=== PATIENT | female | born 1950 | race African-American/Black ===

== ENCOUNTER 2019-10-20 15:07 | Outpatient (CLI) | payer MEDICARE, OTHER ==
[2019-10-21 17:10] LABS: SARS-CoV-2 MS2 Positive; SARS-CoV-2 N Gene Negative; SARS-CoV-2 S Gene Negative; SARS-CoV-2 orf1ab Negative
== END 2019-10-20 15:08 | disposition home or self-care (01) ==
LOC: LABBT 15:07
PROVIDERS: ATTEND Surgery
DX: Z01.812 Encounter for preprocedural laboratory examination (principal); Z11.59 Encounter for screening for other viral diseases; M48.061 Spinal stenosis, lumbar region without neurogenic claudication; M54.16 Radiculopathy, lumbar region
CPT/HCPCS: 87635; U0003

== ENCOUNTER 2019-10-24 07:42 | Day surgery (SDC) | payer MEDICARE ==
[2019-10-20 16:31] VITALS: BMI 43.8
[2019-10-24 08:37] LABS: #Basophils 0.1 thou/uL (0.0-0.2); #Eosinphils 0.1 thou/uL (0.0-0.7); #Lymphocytes 1.8 thou/uL (1.20-3.40); #Monocytes 0.3 thou/uL (0.11-0.59); #Neutrophils 2.2 thou/uL (1.40-6.50); %Basophils 1.6 % (0.0-1.0); %Eosinophils 2.5 % (0.0-10.0); %Lymphocytes 39.7 % (21.0-51.0); %Monocytes 6.2 % (0.0-10.0); %Neutrophils 50.1 % (42.0-75.0); Hemoglobin 10.3 g/dL (12.0-16.0); Mean Corpuscular HGB CONC 31.6 g/dL (32.0-36.0); Mean Corpuscular Hemoglobin 30.3 pg (27.0-31.0); Mean Corpuscular Volume 95.9 fL (78.0-98.0); Platelet Count 152 thou/uL (130-400); RBC Distribution Width 12.8 % (11.5-14.5); White Blood Cell (WBC) Count 4.5 thou/uL (4.8-10.8)
[2019-10-24 08:41] LABS: PTT 31.9 SEC (22.9-36.1); Prothrombin Time 12.7 sec (12.0-14.7)
[2019-10-24 08:52] LABS: Anion Gap 12 mmol/L (10-20); BUN (Urea Nitrogen) 17 mg/dL (9.8-20.1); Calc. Creatinine Clearance 82 mL/min (70-130); Calcium 9.2 mg/dL (7.8-10.44); Carbon Dioxide 28 mmol/L (23-31); Chloride 104 mmol/L (98-107); Estimated GFR-MDRD 49; Glucose 111 mg/dL (80-115); Potassium 4.2 mmol/L (3.5-5.1); Sodium 140 mmol/L (136-145)
[2019-10-24] MEDS ORDERED: Thrombin 5000 UNITS/5 ML VIAL ONE (09:56)
[2019-10-24] MEDS ORDERED: Fentanyl 100 MCG/2 ML VIAL ONE ×3 (10:14→13:36)
[2019-10-24] MEDS ORDERED: PROPOFOL 200 MG/20 ML VIAL ONE (11:31)
[2019-10-24] MEDS ORDERED: PHENYLEPHRINE-NS 100 MCG/ML 10 ML SYRINGE ONE (11:31)
[2019-10-24] MEDS ORDERED: Ondansetron PF 4 MG/2 ML Vial ONE (11:31)
[2019-10-24] MEDS ORDERED: Glycopyrrolate 0.2 MG/ML 5 ML SYRINGE ONE (11:31)
[2019-10-24] MEDS ORDERED: Rocuronium Bromide 10 MG/ML (10ML VIAL) ONE (11:31)
[2019-10-24] MEDS ORDERED: Lidocaine 1% PF 5 ML VIAL ONE (11:31)
[2019-10-24] MEDS ORDERED: Metoclopramide HCl 10 MG/2 ML VIAL ONE (11:31)
[2019-10-24] MEDS ORDERED: HYDROmorphone 2 MG/ML VIAL SLOW IVP PRN (12:26)
[2019-10-24] MEDS ORDERED: Promethazine HCl 25 MG/ML VIAL SLOW IVP PRN (12:26)
[2019-10-24] MEDS ORDERED: Ondansetron HCl/PF 4 MG/2 ML Vial IVP PRN (12:26)
[2019-10-24] MEDS ORDERED: Promethazine HCl 25 MG/ML VIAL IM PRN (12:26)
[2019-10-24] MEDS ORDERED: Morphine Sulfate 2 MG/ML SYRINGE SLOW IVP PRN (12:26)
[2019-10-24] MEDS ORDERED: PACU-Morphine 4MG/ML VIAL SLOW IVP PRN (12:26)
[2019-10-24] MEDS ORDERED: Ondansetron PF 4 MG/2 ML Vial IVP PRN (12:57)
[2019-10-24] MEDS ORDERED: Acetaminophen 325 MG TAB PO PRN (12:57)
[2019-10-24] MEDS ORDERED: Mag-Al 1200 mg/1200 mg/30 ML UDCUP PO PRN (12:57)
[2019-10-24] MEDS ORDERED: Morphine 2 MG/ML SYRINGE SLOW IVP PRN (12:57)
[2019-10-24] MEDS ORDERED: traMADol HCl 50 MG TAB PO PRN (12:57)
[2019-10-24] MEDS ORDERED: Fleet Enema 133 ML BOT PR PRN (12:57)
[2019-10-24] MEDS ORDERED: Milk Of Magnesia 30 ML UDCUP PO PRN (12:57)
[2019-10-24] MEDS ORDERED: Bisacodyl 10 MG SUPP PR PRN (12:57)
[2019-10-24] MEDS: Sodium Chloride 0.9% 1,000 ML IV SCH (16:27)
[2019-10-24] MEDS: HYDROcodone/Acetaminophen 7.5/325 mg Tablet PO PRN ×2 (18:10→23:01)
[2019-10-24] MEDS: metFORMIN 500 MG TAB PO SCH (18:10)
[2019-10-24] MEDS: CEFAZOLIN 2 GM in Premix Bag 1 BAG IVPB SCH (18:10)
--- NOTE | 2019-10-24 20:20 | EKG ---
Test Reason : PREOP Blood Pressure : / mmHG Vent. Rate : 075 BPM Atrial Rate : 075 BPM P-R Int : 170 ms QRS Dur : 096 ms QT Int : 412 ms P-R-T Axes : 057 -10 014 degrees QTc Int : 460 ms Normal sinus rhythm Nonspecific T wave abnormality Abnormal ECG No previous ECGs available Confirmed by SCOTT SHELBY, DR. Queen ([id number]) on 10/24/2019 8:20:05 PM Referred By: ACE Confirmed By:DR. Bernice CHAVEZ MD
[2019-10-24] MEDS: tiZANidine HCl 4 MG TAB PO PRN (20:46)
[2019-10-24] MEDS: Gabapentin 300 MG CAP PO SCH (20:46)
[2019-10-24] MEDS: Lisinopril 20 MG TAB PO SCH (20:47)
[2019-10-24] MEDS: Acetaminophen/Codeine 30-300mg Tablet PO PRN (20:47)
[2019-10-24] MEDS ORDERED: Montelukast Sodium 10 mg Tablet PO SCH (21:00)
[2019-10-24] MEDS ORDERED: Atorvastatin Calcium 10 MG TAB PO SCH (21:00)
[2019-10-25] MEDS: Sodium Chloride 0.9% 1,000 ML IV SCH ×2 (02:27→17:30)
[2019-10-25] MEDS: tiZANidine HCl 4 MG TAB PO PRN (03:05)
[2019-10-25] MEDS: HYDROcodone/Acetaminophen 7.5/325 mg Tablet PO PRN ×4 (03:05→18:16)
[2019-10-25] MEDS: CEFAZOLIN 2 GM in Premix Bag 1 BAG IVPB SCH (03:05)
--- NOTE | 2019-10-25 05:56 | OP ---
DATE OF PROCEDURE: 10/24/2019 UNDERWRITING SERVICE REPRESENTATIVE: Monica Easley PA-C LOCATION: OR 12. WOUND CLASSIFICATION: Type 1 wound. PREPROCEDURE DIAGNOSIS: Low back and leg pain with lumbar stenosis, lumbar disk extrusion. POSTPROCEDURE DIAGNOSIS: Low back and leg pain with lumbar stenosis, lumbar disk extrusion. PROCEDURES PERFORMED: 1. L4 to S1 laminectomy, partial facetectomy, foraminotomy. 2. Left L5-S1 diskectomy. 3. Use of operating microscope for microdissection. DESCRIPTION OF PROCEDURE: After informed consent was obtained from the patient, the patient was brought to the OR. Proper patient, pause, and identification were carried out. She was placed under excellent general endotracheal anesthesia and positioned prone on the OR table. All appropriate points were padded. We identified the L4 to S1 dorsal spines and a linear nathan was made. This region was sterilely cleansed, prepared and draped. Proper patient, pause, and identification was then carried out. The wound was then opened with a combination of sharp, monopolar, and blunt dissection, exposed the L4, L5, S1 dorsal spines and lamina. We were satisfied with our exposure. Localization film confirmed area of interest, we then performed L4-L5, L5-S1 laminectomies, partial facetectomies, foraminotomies and we had excellent decompression of the common neural tube and nerve roots. Microscope was brought in and we then did a left L5-S1 diskectomy with excellent decompression of the traversing left S1 nerve root. Copious irrigation occurred throughout as did maximizing hemostasis. The wound was then closed in anatomic layers following sprinkling of vancomycin powder. The patient emerged from anesthesia. Job ID: [id number]
[2019-10-25] MEDS: metFORMIN 500 MG TAB PO SCH ×2 (08:59→18:16)
[2019-10-25] MEDS: Gabapentin 300 MG CAP PO SCH (08:59)
[2019-10-25] MEDS: Lisinopril 20 MG TAB PO SCH (08:59)
[2019-10-25] MEDS ORDERED: Furosemide 10 MG/ML Oral Soln PO SCH (09:00)
[2019-10-25] MEDS ORDERED: Amlodipine 5 MG TAB PO SCH (09:00)
--- NOTE | 2019-10-25 09:53 | PRG ---
DATE OF SERVICE: 10/25/2019 Ms. Hernandez is doing well postoperative day 1, from lumbar laminectomy. She states her leg pain has improved. She does have some soreness in the buttocks and obviously lumbar incisional pain. She has mobilized, but we would like to have Physical Therapy see her before she is able to go home. She would like to go home today, but again I want to make sure she is safe. I should note she is neurologically doing very well with intact strength. Job ID: [id number]
[2019-10-25] MEDS: Acetaminophen/Codeine 30-300mg Tablet PO PRN ×2 (13:38→18:16)
[2019-10-25 16:21] VITALS: BP 139/70; TEMP 98.4
== END 2019-10-25 18:57 ==
LOC: SDC 07:42 → SURG B 13:01 → SDC 10-25 18:57
PROVIDERS: ATTEND Surgery
PROC: 0ST20ZZ Resection of Lumbar Vertebral Disc, Open Approach (ICD-10-PCS; principal; 2019-10-24)
DX: M48.061 Spinal stenosis, lumbar region without neurogenic claudication (principal); M51.16 Intervertebral disc disorders with radiculopathy, lumbar region; Z79.84 Long term (current) use of oral hypoglycemic drugs; Z79.899 Other long term (current) drug therapy
CPT/HCPCS: 36415; 76000; 80048; 85025; 85610; 85730; 93005; 93010; J0690; J2001; J2405; J2704; J2765; J3010; J3370

== ENCOUNTER 2023-12-29 08:16 | Outpatient (CLI) | payer MEDICARE | END 2023-12-29 08:17 | disposition home or self-care (01) | LOC: MRI 08:16 | PROVIDERS: ATTEND Urology | DX: N28.89 Other specified disorders of kidney and ureter (principal) | CPT/HCPCS: 74183; 82565 ==